=== PATIENT | female | born 1975 | race Hispanic/Latino ===

== ENCOUNTER 2025-03-19 17:51 | Emergency (ER) | payer OTHER ==
[~2025-03-19] VITALS: Ht 160 cm; Wt 68.0 kg
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
[2025-03-19] MEDS ORDERED: CYCL-309 PO (18:43)
[2025-03-19] MEDS ORDERED: IBUP-2070 PO (18:43)
[2025-03-19] MEDS: CYCLOBENZAPRINE HCL 10 MG TABLET PO ONE (19:24)
[2025-03-19] MEDS: ibuPROFEN 800 MG TAB PO ONE (19:25)
[2025-03-19 19:27] VITALS: BP 121/80; PULSE 80; RESP 16; TEMP 99.5; O2SAT 100
== END 2025-03-19 19:35 | disposition home or self-care (01) ==
LOC: EDH 17:51
DX: S29.012A Strain of muscle and tendon of back wall of thorax, initial encounter (principal); S39.012A Strain of muscle, fascia and tendon of lower back, initial encounter; Z79.899 Other long term (current) drug therapy; V43.52XA Car driver injured in collision with other type car in traffic accident, initial encounter; Y93.89 Activity, other specified; Y92.488 Other paved roadways as the place of occurrence of the external cause; Y99.8 Other external cause status
CPT/HCPCS: 72070; 72100; 99284